=== PATIENT | male | born 1955 ===

== ENCOUNTER → 2017-09-20 09:57 | Outpatient (CLI) | payer OTHER, SELFPAY ==
[2017-09-20 10:36] LABS: Add Manual Diff / Slide Review NO; Basophils Percent Auto 1.2 % (0-2); Eosinophils Percent Auto 1.2 % (2-4); Hematocrit 43.7 % (41-53); Hemoglobin 14.6 g/dL (13.5-17.5); Lymphocytes Percent Auto 14.4 % (25-40); Mean Corpuscular HGB Conc 33.5 % (30-36); Mean Corpuscular Hemoglobin 32.3 PG (26-34); Mean Corpuscular Volume 96.3 fL (80-100); Monocytes Percent Auto 17.5 % (3-14); Neutrophils Absolute Auto 4100 /uL (3000-5900); Neutrophils Percent Auto 65.7 % (50-75); Platelet Count 187 X10^3/uL (150-400); Red Blood Cell Count 4.54 X10^6/uL (4.5-5.9); Red Cell Distribution Width 14.7 % (11.6-14.8); White Blood Cell Count 6.3 X10^3/uL (4.5-11.0)
[2017-09-20 10:53] LABS: Alanine Aminotransferase 40 IU/L (21-72); Albumin 4.4 g/dL (3.5-5.0); Albumin Globulin Ratio 1.6 (1.0-2.8); Alkaline Phosphatase 122 U/L (38-126); Appearance Urine UA CLEAR; Aspartate Aminotransferase 43 IU/L (17-59); Bilirubin Total 0.7 mg/dL (0.2-1.3); Bilirubin Urine UA NEGATIVE (NEGATIVE); Blood Urea Nitrogen 22 mg/dL (9-20); Calcium 9.3 mg/dL (8.4-10.2); Carbon Dioxide 27 mmol/L (22-32); Chloride 102 mmol/L (98-107); Cholesterol 285 mg/dL (140-199); Color Urine UA YELLOW; Estimated Glomerular Filt Rate > 60.0 mL/min (>60); Globulin 2.8 g/dL (1.7-4.1); Glucose 97 mg/dL (80-110); Glucose Urine UA NEGATIVE (Normal); HDL Cholesterol 66 mg/dL (40-60); HEMOLYSIS < 15 (0-50); Ketones Urine UA NEGATIVE (NEGATIVE); Leukocyte Esterase Urine UA NEGATIVE (NEGATIVE); Nitrite Urine UA Negative (Negative); Occult Blood Urine UA NEGATIVE (Negative); Potassium 5.1 mmol/L (3.4-5.1); Protein Urine UA TRACE (Negative); Sodium 142 mmol/L (137-145); Specific Gravity Urine UA 1.015 (1.000-1.035); Total Protein 7.2 g/dL (6.3-8.2); Triglycerides 443 mg/dL (35-150); Urobilinogen Urine UA 0.2 E.U./dL (0.2)
[2017-09-20 10:55] LABS: C-Reactive Protein Quant < 0.5 mg/dL (<1.0)
[2017-09-20 11:12] LABS: Bacteria Urine Moderate (10-30); Culture Indicated Urine Cult Not Indicated; Hyaline Casts Urine 1-5/LPF; Mucus Urine 1+ (Negative); RBC Urine 0-1/HPF (0-5/HPF); WBC Urine 0-1/HPF (0-5/HPF)
[2017-09-20 11:26] LABS: Erythrocyte Sedimentation Rate 13 MM/HR (0-15)
[2017-09-20 11:29] LABS: Thyroid Stimulating Hormone 1.48 uIU/mL (0.47-4.68)
== END ==
PROVIDERS: PCP Family Medicine; Visit Provider Internal Medicine Rheumatology
DX: M31.30 Wegener's granulomatosis without renal involvement (principal); D53.9 Nutritional anemia, unspecified; N19 Unspecified kidney failure; F32.9 Major depressive disorder, single episode, unspecified; E78.5 Hyperlipidemia, unspecified; I10 Essential (primary) hypertension
CPT/HCPCS: 36415; 80053; 80061; 81001; 84443; 85025; 85651; 86140

== ENCOUNTER → 2017-09-24 16:08 | Outpatient (CLI) | payer OTHER, SELFPAY | PROVIDERS: Family Provider Family Medicine; PCP Family Medicine; Visit Provider Family Medicine | DX: N39.0 Urinary tract infection, site not specified (principal); Z53.9 Procedure and treatment not carried out, unspecified reason ==

== ENCOUNTER 2018-03-03 07:25 | Inpatient (IN) | payer OTHER, SELFPAY ==
[2018-03-03] VITALS (18 sets, daily range): BP systolic 104–146; BP diastolic 57–77; PULSE 83–104; RESP 11–38; TEMP 36.5–37.6; O2SAT 77–94; BMI 28.5; BMI 27.8
--- NOTE | 2018-03-03 | DI.RAD.S_ITS ---
PROCEDURE: XR FOOT RT 2V INDICATIONS: pain; r/o fracture /angelique TECHNIQUE: 3 views of the foot were acquired. COMPARISON: None. FINDINGS: Bones: No fractures or dislocations. No suspicious bony lesions. Soft tissues: No tibiotalar joint effusion. Achilles tendon appears normal. IMPRESSION: No trauma found. Dictated by: Ray Limon M.D. on 03/03/2018 at 12:52 Approved by: Ray Limon M.D. on 03/03/2018 at 12:53
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
[2018-03-03] MEDS: NITROGLYCERIN 0.4 MG SL TAB SL ×2 (07:52→08:26)
[2018-03-03] MEDS: ALBUTEROL/IPRATROPIUM 3 ML AMPUL INH (08:10)
[2018-03-03 08:30] LABS: Add Manual Diff / Slide Review NO; Basophils Percent Auto 0.4 % (0-2); Eosinophils Percent Auto 0.1 % (2-4); Hematocrit 33.7 % (41-53); Hemoglobin 11.4 g/dL (13.5-17.5); Lymphocytes Percent Auto 5.6 % (25-40); Mean Corpuscular HGB Conc 33.8 % (30-36); Mean Corpuscular Hemoglobin 31.2 PG (26-34); Mean Corpuscular Volume 92.2 fL (80-100); Monocytes Percent Auto 12.2 % (3-14); Neutrophils Absolute Auto 10600 /uL (3000-5900); Neutrophils Percent Auto 81.7 % (50-75); Platelet Count 494 X10^3/uL (150-400); Red Blood Cell Count 3.66 X10^6/uL (4.5-5.9); Red Cell Distribution Width 13.1 % (11.6-14.8)
[2018-03-03 08:42] LABS: Alanine Aminotransferase 24 IU/L (21-72); Albumin 3.7 g/dL (3.5-5.0); Albumin Globulin Ratio 1.2 (1.0-2.8); Alkaline Phosphatase 145 U/L (38-126); Aspartate Aminotransferase 20 IU/L (17-59); BUN Creatinine Ratio 17.5 (6-22); Bilirubin Total 0.5 mg/dL (0.2-1.3); Blood Urea Nitrogen 21 mg/dL (9-20); Calcium 8.9 mg/dL (8.4-10.2); Carbon Dioxide 24 mmol/L (22-32); Chloride 101 mmol/L (98-107); Creatine Kinase < 20 U/L (55-170); Estimated Glomerular Filt Rate > 60.0 mL/min (>60); Glucose 97 mg/dL (80-110); HEMOLYSIS < 15 (0-50); Lipase 127 U/L (23-300); Potassium 4.4 mmol/L (3.4-5.1); Sodium 139 mmol/L (137-145); Total Protein 6.7 g/dL (6.3-8.2)
[2018-03-03 08:54] LABS: Troponin I < 0.012 ng/mL (0.01-0.034)
--- NOTE | 2018-03-03 09:43 | DI.CT.S_ITS ---
PROCEDURE: CT ANGIO CHEST PE PROTOCOL INDICATIONS: hypoxic recent airplane ride TECHNIQUE: After the administration of intravenous contrast, 2 mm thick sections acquired from the pulmonary apices to the posterior costophrenic angles. 3-dimensional maximum intensity projection (MIP) coronal and sagittal reformats were then acquired through the thorax. For radiation dose reduction, the following was used: automated exposure control, adjustment of mA and/or kV according to patient size. COMPARISON: [facility], CR, XR CHEST 1V, 03/03/2018, 8:08. FINDINGS: Image quality: Excellent. Pulmonary arteries: Pulmonary arteries are normal in size, and demonstrate no intraluminal filling defects to suggest central pulmonary embolism. Lungs and pleura: There is a 64 mm diameter region of masslike consolidation within the left upper lobe posterolaterally adjacent to the major fissure. There is moderate airspace opacity within the left lower lobe. There is a small partially loculated left pleural effusion. Mild patchy airspace opacity within the right lung base is present. Central and peripheral airways are patent. Mediastinum: Heart size is enlarged, without pericardial effusion. There is calcification of the coronary vasculature. No mediastinal or hilar adenopathy. Thoracic aorta is normal in caliber and enhancement. Esophagus is normal in caliber, without hiatal hernia. Bones and chest wall: No suspicious bony lesions. Ribs and thoracic spine appear intact throughout. Thyroid gland is within normal limits. No axillary or supraclavicular adenopathy. Abdomen: Visualized upper abdominal solid organs appear normal in the early arterial phase of enhancement. IMPRESSION: 1. Left upper lobe round pneumonia versus neoplasm. 2. Small partially loculated left pleural effusion. 3. Bibasilar pneumonia. 4. Coronary artery disease. Dictated by: Mac Moses M.D. on 03/03/2018 at 9:44 Approved by: Mac Moses M.D. on 03/03/2018 at 9:48
[2018-03-03 09:56] LABS: Bacteria Urine None Seen; RBC Urine None Seen (0-5/HPF)
[2018-03-03 10:10] LABS: Squamous Epithelial Cell Urine 5-10 /HPF; WBC Urine 1-5/HPF (0-5/HPF)
[2018-03-03 10:11] LABS: Culture Indicated Urine Cult Not Indicated; Hyaline Casts Urine 5-10/LPF; Mucus Urine 2+ (Negative)
[2018-03-03] MEDS: CEFTRIAXONE 1 GM/50 ML FROZ.PIGGY IV (10:39)
[2018-03-03 11:56] LABS: Magnesium 2.1 mg/dL (1.6-2.3); Phosphorous 3.4 mg/dL (2.3-3.7)
[2018-03-03 12:02] LABS: Influenza A and B by PCR Rapid Negative (Negative)
[2018-03-03] MEDS: SODIUM CHLORIDE 0.9% 1,000 ML 75 ML IV (12:16)
[2018-03-03] MEDS: predniSONE 5 MG TABLET PO (12:17)
[2018-03-03] MEDS: AZITHROMYCIN 500 MG in DEXTROSE 5% IN WATER 250 ML IV (12:18)
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
[2018-03-03] MEDS: HYDROCODONE/ACET 5/325 TABLET 1 TAB PO ×2 (15:30→20:30)
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
[2018-03-04] VITALS (14 sets, daily range): BP systolic 110–147; BP diastolic 62–99; PULSE 80–102; RESP 19–24; TEMP 36.3–37.1; O2SAT 2–98
--- NOTE | 2018-03-04 | DI.RAD.S_ITS ---
PROCEDURE: XR CHEST 2V INDICATIONS: pna vs mass TECHNIQUE: 2 views of the chest were acquired. COMPARISON: [facility], CT, CT ANGIO CHEST PE PROTOCOL, 03/03/2018, 9:27. [facility], CR, XR CHEST 1V, 03/03/2018, 8:08. FINDINGS: Surgical changes and devices: None. Lungs and pleura: No pleural effusions or pneumothorax. Redemonstration of masslike opacity involving the left midlung. Please see further characterization with CT chest dated yesterday. Bibasilar patchy opacities are again present and unchanged No definite new consolidation since yesterday radiographically identified. Mediastinum: Mediastinal contours are normal. Heart size is normal. Bones and chest wall: No suspicious bony abnormalities. Soft tissues appear unremarkable. IMPRESSION: Overall, no new consolidation since yesterday. Redemonstrated bibasilar patchy and left midlung masslike opacities as before. Dictated by: Nithin Tadeo M.D. on 03/04/2018 at 10:04 Approved by: Nithin Tadeo M.D. on 03/04/2018 at 10:08
[2018-03-04] MEDS: HYDROCODONE/ACET 5/325 TABLET 1 TAB PO ×3 (00:23→19:57)
[2018-03-04] MEDS: SODIUM CHLORIDE 0.9% 1,000 ML 75 ML IV (01:39)
[2018-03-04 05:07] LABS: Add Manual Diff / Slide Review NO; Basophils Percent Auto 0.3 % (0-2); Eosinophils Percent Auto 0.4 % (2-4); Hematocrit 36.1 % (41-53); Hemoglobin 11.5 g/dL (13.5-17.5); Lymphocytes Percent Auto 4.1 % (25-40); Mean Corpuscular HGB Conc 31.8 % (30-36); Mean Corpuscular Hemoglobin 29.7 PG (26-34); Mean Corpuscular Volume 93.4 fL (80-100); Monocytes Percent Auto 11.7 % (3-14); Neutrophils Absolute Auto 10100 /uL (3000-5900); Neutrophils Percent Auto 83.5 % (50-75); Platelet Count 481 X10^3/uL (150-400); Red Blood Cell Count 3.86 X10^6/uL (4.5-5.9); Red Cell Distribution Width 13.7 % (11.6-14.8); White Blood Cell Count 12.1 X10^3/uL (4.5-11.0)
[2018-03-04 05:20] LABS: Magnesium 2.3 mg/dL (1.6-2.3)
[2018-03-04 05:21] LABS: Alanine Aminotransferase 25 IU/L (21-72); Albumin 3.4 g/dL (3.5-5.0); Albumin Globulin Ratio 1.1 (1.0-2.8); Alkaline Phosphatase 124 U/L (38-126); Aspartate Aminotransferase 22 IU/L (17-59); BUN Creatinine Ratio 18.9 (6-22); Bilirubin Total 0.4 mg/dL (0.2-1.3); Blood Urea Nitrogen 17 mg/dL (9-20); Calcium 8.6 mg/dL (8.4-10.2); Carbon Dioxide 28 mmol/L (22-32); Chloride 104 mmol/L (98-107); Estimated Glomerular Filt Rate > 60.0 mL/min (>60); Glucose 107 mg/dL (80-110); HEMOLYSIS < 15 (0-50); Potassium 4.8 mmol/L (3.4-5.1); Sodium 141 mmol/L (137-145); Total Protein 6.4 g/dL (6.3-8.2)
[2018-03-04] MEDS: CEFTRIAXONE 1 GM/50 ML FROZ.PIGGY IV (05:25)
[2018-03-04] MEDS: AZITHROMYCIN 250 MG in DEXTROSE 5% IN WATER 250 ML IV (06:19)
[2018-03-04] MEDS: AMLODIPINE 5 MG TABLET PO (08:11)
[2018-03-04] MEDS: ATENOLOL 25 MG TABLET 50 MG PO (08:11)
[2018-03-04] MEDS: CITALOPRAM 20 MG TABLET 40 MG PO (08:11)
[2018-03-04] MEDS: predniSONE 5 MG TABLET PO (08:13)
--- NOTE | 2018-03-04 15:31 | P.PN_ITS ---
Subjective Date Patient Seen: 03/04/18 Time Patient Seen: 15:30 Interval history: NO CP OR SOB REPORTED FEELING BETTER NO NOVAK/NAUSEA OR VOMITING NO SIGNIFICANT ISSUES OVERNIGHT Exam Vital Signs (past 8 hours): - 03/04/18 07:58 03/04/18 08:00 03/04/18 08:53 Temperature 97.9 F Pulse Rate 87 Respiratory Rate 19 Blood Pressure 147/67 H Pulse Oximetry 96 96 92 03/04/18 11:00 03/04/18 11:38 Temperature 98.3 F Pulse Rate 82 Respiratory Rate 24 Blood Pressure 134/73 Pulse Oximetry 91 95 Oxygen Delivery Method Nasal Cannula Oxygen Flow Rate 2 Narrative Exam Narrative: NO ACUTE DISTRESS. PATIENT IS ALERT ORIENTED X3. VITAL SIGNS STABLE HEAD ATRAUMATIC NORMOCEPHALIC NECK : SUPPLE WITHOUT ADENOPATHY EYE: EOMI, PERRLA, NORMAL CONJUNCTIVA CHEST: REGULAR RATE.. NO RUBS. PMI IS NON DISPLACED. NORMAL S1/S2 PULMONARY DECREASED BS OVER THE BASES. MILD BIBASILAR CRACKLES NOTED; NO INCREASED DULLNESS TO PERCUSSION; NO WHEEZING EXTREMITIES: 1+ EDEMA. NON PITTING. NO CYANOSIS CLUBBING NOTED. NEURO: CRANIAL NERVES 2-12 GROSSLY INTACT. NO FOCAL NEUROLOGICAL DEFICIT NOTED. MSK: NORMAL RANGE OF MOTION FOR AGE. NO JOINT EFFUSION. SKIN: NORMAL FOR ETHNICITY; NO ECCHYMOSIS. NO LESION. FAIR TURGOR. : NORMAL EXTERNAL GENITALIA. PSYCH : APPROPRIATE MOOD AND AFFECT. ALERT AWAKE ORIENTED X3 Objective Labs Result Diagrams: 03/04/18 04:45 03/04/18 04:45 Labs: Laboratory Results - last 24 hr 03/04/18 03/04/18 03/04/18 04:45 04:45 04:45 WBC 12.1 H RBC 3.86 L Hgb 11.5 L Hct 36.1 L MCV 93.4 MCH 29.7 MCHC 31.8 RDW 13.7 Plt Count 481 H Neut % (Auto) 83.5 H Lymph % (Auto) 4.1 L Mitchell % (Auto) 11.7 Eos % (Auto) 0.4 L Baso % (Auto) 0.3 Neut # (Auto) 17444 H Sodium 141 Potassium 4.8 Chloride 104 Carbon Dioxide 28 BUN 17 Creatinine 0.90 Estimated GFR > 60.0 BUN/Creatinine Ratio 18.9 Glucose 107 Calcium 8.6 Magnesium 2.3 Total Bilirubin 0.4 AST 22 ALT 25 Alkaline Phosphatase 124 Total Protein 6.4 Albumin 3.4 L Globulin 3.0 Albumin/Globulin Ratio 1.1 Assessment & Plan Plan: Assessment/Plan Narrative: IMPRESSION AND PLAN ACUTE RESP FAILURE; DUE TO PNA; ABG INDICATED; REPEATED CXR THIS AM; ADDITIONAL MANAGEMENT INDICATED CLINICALLY; APPEARS IMPROVED LEFT UPPER LOBE PNEUMONIA. WILL CONTINUE CURRENT ANTIBIOTICS WITH AZITHROMYCIN AND ROCEPHIN. SPUTUM CULTURE PENDING; SERIAL CHEST FILM INDICATED; GET ABG IF NEEDED; POSSIBLE LEFT UPPER LOBE MASS. THIS WAS REPORTED PER CT. REPEATED CHEST FILM THIS AM AND POSS MASS LIKE OPACITY IS BEING MENTIONED; WILL CONSIDER FURTHER IMAGING INDICATED. PATIENT IS A NONSMOKER. WILL CONSIDER INFORMATION SYSTEMS DIRECTOR CONSULT/REFERRAL OUTPATIENT IF NEEDED; ADDITIONAL WORKUP INDICATED LEFT PLEURAL EFFUSION. THIS IS MOST LIKELY PARAPNEUMONIC IN NATURE. MONITOR FOR NOW. POSSIBLE CAD. THIS WAS NOTED ON THE CT SCAN. PATIENT HAS NO PRIOR HISTORY. CONSIDER ECHOCARDIOGRAM INDICATED LEFT ANKLE STRAIN. X-RAY NEGATIVE. PAIN MANAGEMENT. PT OT INDICATED HYPERTENSION PER HISTORY. CONTINUE HOME MEDICATIONS FOR NOW. NEEDED MEDICATIONS INDICATED WEGENERS SYNDROME. CONTINUE HOME MEDICATIONS. OUTPATIENT MANAGEMENT INDICATED ANEMIA OF CHRONIC DISEASE. MONITOR FOR NOW WITH SERIAL LABS LEUKOCYTOSIS. MOST LIKELY SECONDARY TO PNEUMONIA. PATIENT ON ANTIBIOTICS. DAILY CBC TO FOLLOW THROMBOCYTOSIS. LIKELY SECONDARY TO INFECTIOUS PROCESS. IMPROVING; MONITOR DAILY ELEVATED BUN. THIS HAS BEEN ONGOING SINCE 2017. CAUSE?. CREATININE IS ADEQUATE. GFR IS ABOVE 60. MONITOR FOR NOW OK FOR MEDSURG DC PER CLINICAL COURSE
--- NOTE | 2018-03-04 15:58 | PC.NURSE ---
Addendum entered by Hali Mercado R.N. 03/04/18 18:15: 1800 - Ambulate around the unit. 91% on RA. Educated to resp awake vs asleep. Encourage pt to continue O2 use at this time. Monitor. Original Note: Pt requesting to ambulate. Changed to portable tele monitor. Ambulate halls with LINE REPAIRER. Denies increased SOB. Productive cough with left side bottom 3 ribs, catch. Encouraged I.S. use. Call light in reach.
--- NOTE | 2018-03-04 16:45 | CM.DANOTE ---
Discharge Planning/Care Management DCP: assessment: case received, EMR reviewed. Discussed in Team Rounds with Dr. Pérez. Pt is a 63 year old male who admitted to care of hosptitalist team yessterday. Payer: [facility]. PCP: not known at this time Admission status: INPT: confirmed by UR RN Billy. Hospitalist noted that a mass had been noted and workup was in process. He anticipated pt would be here a few days. It is noted that pt does live in [place] with his Jessica. Due to caseload triage: decision made to defer the rest of the assessment process to DCP team tomorrow. P: in process CM Discharge Assessment Start: 03/04/18 16:44 Freq: Status: Active Protocol: Document 03/04/18 16:44 ITV (Rec: 03/04/18 16:45 ITV [id number]) Discharge Planning Assessment History Provided By Medical Record Comment pending an in room visit with pt Review Status In Process Next Review Type Continued Stay Review
[2018-03-04 18:38] LABS: Add Manual Diff / Slide Review NO; Eosinophils Percent Auto 0.1 % (2-4); Hematocrit 36.8 % (41-53); Hemoglobin 11.9 g/dL (13.5-17.5); Lymphocytes Percent Auto 3.9 % (25-40); Mean Corpuscular HGB Conc 32.2 % (30-36); Mean Corpuscular Hemoglobin 30.4 PG (26-34); Mean Corpuscular Volume 94.3 fL (80-100); Monocytes Percent Auto 9.9 % (3-14); Neutrophils Absolute Auto 12700 /uL (3000-5900); Neutrophils Percent Auto 85.1 % (50-75); Platelet Count 575 X10^3/uL (150-400); Red Cell Distribution Width 13.5 % (11.6-14.8); White Blood Cell Count 14.9 X10^3/uL (4.5-11.0)
[2018-03-05] VITALS (11 sets, daily range): BP systolic 126–149; BP diastolic 71–78; PULSE 70–85; RESP 16–21; TEMP 36.2–37.2; O2SAT 89–98
[2018-03-05] MEDS: CODEINE/GUAIFENESIN LIQUID 10ML UDC 5 ML PO (00:09)
[2018-03-05] MEDS: HYDROCODONE/ACET 5/325 TABLET 1 TAB PO ×2 (00:54→19:59)
[2018-03-05] MEDS: CODEINE/GUAIFENESIN LIQUID 5ML UDC 5 ML PO (05:44)
[2018-03-05] MEDS: ATENOLOL 25 MG TABLET 50 MG PO (08:21)
[2018-03-05] MEDS: CITALOPRAM 20 MG TABLET 40 MG PO (08:22)
[2018-03-05] MEDS: predniSONE 5 MG TABLET PO (08:22)
[2018-03-05] MEDS: AMLODIPINE 5 MG TABLET PO (08:22)
[2018-03-05] MEDS: ONDANSETRON 4 MG ODT 8 MG PO (08:22)
--- NOTE | 2018-03-05 08:38 | PC.NURSE ---
Transfer Note Transferred to room 230 via wheelchair at this time. Report given to Amanda CARTAGENA. All belongings with pt including cell phone and associate vice president, clothing, and meds.
--- NOTE | 2018-03-05 09:09 | CM.DPC ---
DCP Cont: Checked in patient. Alert and oriented, lives with his . Patient moved to this room, was down in iCU. Patient is hopeful to go home, but is needing to be on oxygen at this time. Patient should be working with respiratory as well. Patient has been independent at home. He is hopeful that they can start another IV, for he stated he really doesn't want a PICC line. P: DCP to continue to follow closely, and offer any resources that patient may need before discharge. Robina Acosta RN/Technology Lead
[2018-03-05] MEDS: CEFTRIAXONE 1 GM/50 ML FROZ.PIGGY IV (10:52)
[2018-03-05] MEDS: AZITHROMYCIN 250 MG in DEXTROSE 5% IN WATER 250 ML IV (11:32)
--- NOTE | 2018-03-05 14:48 | PC.NURSE ---
midline 20g 8cm iv cath placed in upper lt arm with no problems at 10am.
--- NOTE | 2018-03-05 16:17 | PM.PN.1 ---
Subjective Date Patient Seen: 03/05/18 Interval history: Patient reports he feels better. He does note that he becomes hypoxic over the course of the day. He does not feel that he is back to baseline. Patient does follow with a front desk agent in telling him. Exam Vital Signs (past 8 hours): - 03/05/18 08:25 03/05/18 11:39 Temperature 97.1 F L Pulse Rate 85 Respiratory Rate 18 Blood Pressure 144/75 H Pulse Oximetry 95 95 Oxygen Delivery Method Room Air Oxygen Flow Rate 2.5 Narrative Exam Narrative: Pleasant male in no acute distress Lungs: Left basilar crackles, Cardiac exam: Regular rate and rhythm normal S1 and S2 Abdomen: Soft nontender nondistended Extremity: No edema Objective Labs Result Diagrams: 03/04/18 17:56 03/04/18 04:45 Labs: Laboratory Results - last 24 hr 03/04/18 17:56 WBC 14.9 H RBC 3.90 L Hgb 11.9 L Hct 36.8 L MCV 94.3 MCH 30.4 MCHC 32.2 RDW 13.5 Plt Count 575 H Neut % (Auto) 85.1 H Lymph % (Auto) 3.[address] [place] % (Auto) 9.9 Eos % (Auto) 0.1 L Baso % (Auto) 1.0 Neut # (Auto) 47147 H Assessment & Plan (1) Pneumonia: Problem details: Continue antibiotic Qualifiers: Aspiration pneumonia type: Laterality: left Lung location: upper lobe of lung Pneumonia type: due to unspecified organism Qualified Code(s): J18.1 - Lobar pneumonia, unspecified organism Current visit: Yes Status: Acute (2) Respiratory failure: Problem details: Will continue oxygen and wean as appropriate Qualifiers: Chronicity: acute Respiratory failure complication: hypoxia Qualified Code(s): J96.01 - Acute respiratory failure with hypoxia Current visit: Yes Status: Acute (3) Granulomatosis with polyangiitis: Problem details: Patient is current on his usual prednisone dose. There is no evidence of hemoptysis or pulmonary hemorrhage. Will continue the current dose. Will consult with his front desk agent tomorrow. Current visit: No Status: None (4) Hypertension: Problem details: Continue usual medication Current visit: No Status: None
--- NOTE | 2018-03-05 18:27 | PC.NURSE ---
Addendum entered by Sofy Pepper 03/05/18 20:39: 203- Patient asleep with NC on 3 liters. Original Note: Addendum entered by Sofy Pepper 03/05/18 20:15: 2005- Patient is complaining of 5/10 pain in rib cage. 1 Casanova given, will reassess. Original Note: 1700- On 3-L O2, patient's O2 saturation is 96. Standing in room, on room air O2 was 92. After taking a few deep breaths O2 went up to 96. Patient got up and took a shower. Patient was coughing productively in the shower. Patient stated that the warm, moist air helped relieve some of the congestion in his chest. Sitting on edge of bed eating dinner, patient's O2 is 92 on room air. When using IS patient complains of pain during inspiration. Patient states that his SOB on exertion has improved.
[2018-03-06] VITALS (7 sets, daily range): BP systolic 128–139; BP diastolic 73–79; PULSE 71–83; RESP 16–18; TEMP 36.6–37.3; O2SAT 92–97
--- NOTE | 2018-03-06 00:30 | PC.NURSE ---
Addendum entered by Angelica Mora R.N. 03/06/18 03:28: Complains of 6/10 lower rib pain and cough; medicated with Vicodin and Guaifenesin w/codeine elixer. Original Note: Patient is alert and oriented. Breath sounds with inspiratory crackles in left LL. States he has minor SOB with exertion. Also states he still has intermittently productive cough with cream sputum. Oxygen at 3L/min per NC with sat of 97% so decreased O2 to 2L/min. HRR. Denies nausea. BT present and abdomen is soft. Denies dysuria, frequency, urgency or incontinence. Independent with mobility. Having some rib pain with 4/10 severity but declines offer of pain medication. Wearing bilateral DAVIS stockings but refusing SCD's. Fall risk score is moderate but patient is steady on feet so bed alarm not currently in use.
[2018-03-06] MEDS: HYDROCODONE/ACET 5/325 TABLET 1 TAB PO (03:25)
[2018-03-06] MEDS: CODEINE/GUAIFENESIN LIQUID 5ML UDC 5 ML PO (03:26)
[2018-03-06] MEDS: SODIUM CHLORIDE 0.9% FLUSH 10 ML IV (05:28)
[2018-03-06] MEDS: SODIUM CHLORIDE 0.9% 250 ML 21 ML IV (05:28)
[2018-03-06] MEDS: CEFTRIAXONE 1 GM/50 ML FROZ.PIGGY IV (05:35)
[2018-03-06] MEDS: AZITHROMYCIN 250 MG in DEXTROSE 5% IN WATER 250 ML IV (06:12)
[2018-03-06] MEDS: ONDANSETRON 4 MG ODT 8 MG PO (08:58)
[2018-03-06] MEDS: CITALOPRAM 20 MG TABLET 40 MG PO (08:58)
[2018-03-06] MEDS: ATENOLOL 25 MG TABLET 50 MG PO (08:59)
[2018-03-06] MEDS: predniSONE 5 MG TABLET PO (08:59)
[2018-03-06] MEDS: AMLODIPINE 5 MG TABLET PO (08:59)
--- NOTE | 2018-03-06 10:23 | PM.DS.1 ---
History of Present Illness Date Patient Seen: 03/06/18 Chief complaint: chest pains,sob Narrative: chest pains,sob Narrative: - THIS IS A VERY PLEASANT 63-YEAR-OLD MALE WITH A PAST MEDICAL HISTORY REPORTEDLY SIGNIFICANT FOR HYPERTENSION, SHARONA S SYNDROME. - HE DENIES A PRIOR HISTORY OF TOBACCO ABUSE. HE DENIES ANY PRIOR HISTORY OF CVA OR UT. - HE IS ON RITUXAN AND STEROIDS - HE REPORTED THAT FOR THE LAST WEEK OR SO IS BEING HAVING SOME COUGH WITH YELLOWISH SPUTUM PRODUCTION. HE DENIED ANY BLOOD IN HIS SPUTUM. HE DENIED ANY FEVER OR CHILLS. HOWEVER REPORTED THAT HIS SYMPTOMS HAS BEEN WORSENING. NO WHEEZING. HE RECENTLY TRAVELED TO [place]. NO TRAVEL OUTSIDE THE COUNTRY. HE DENIED ANY SICK CONTACT. - HE ALSO REPORTED SOME LEFT-SIDED CHEST PAIN. NO RADIATION. NOTHING MADE IT BETTER OR WORSE. NO CHEST PALPITATION. NO EDEMA TO LOWER EXTREMITIES. THE CHEST PAIN WAS DESCRIBED I SUSPECT THE PRESSURE-LIKE. - HE DENIED ANY RECENT WEIGHT LOSS OR WEIGHT GAIN. NO DIFFICULTY SWALLOWING. NO DYSPNEA ON EXERTION. HE ALSO DENIES ANY SWELLING TO EXTREMITIES. NO SYNCOPAL OR PRESYNCOPAL EPISODE. NO NUMBNESS TINGLING TO EXTREMITIES. THE POLYURIA NO POLYDIPSIA. NO ABDOMINAL PAIN. NO NAUSEA OR VOMITING. NO DIARRHEA OR CONSTIPATION. - NO OTHER COMPLAINT REPORTED Discharge Providers Date of admission: 03/03/18 10:46 Consults: 03/03/18 10:53 Consult to Discharge Planning Routine Comment: Discharge provider: Saundra Hatfield MD Discharge Date: 03/06/18 Summary Discharge Diagnosis: Bilateral Pneumonia Left upper lobe mass, suspect rounded pneumonia vs. neoplasm, needs follow up Chest CT in 6 weeks Faina's Granulomatosis Hypertension Hospital Course: Patient was admitted to the hospital with shortness of breath and chest pain. His chest Xray and CTA confirmed bilateral pneumonia. The Chest CT revealed a left upper lobe mass concerning for neoplasm vs. rounded pneumonia. The patient was treated for community acquired pneumonia with Ceftriaxone/Azithromycin. He was initially hypoxic on room air. Over the next several days his breathing improved, oxygenation improved, he nad no further shortness of breath or chest pain. The patient was deemed appropriate for discharge home. Status at Discharge Functional status at discharge: independent ambulation Overall status at discharge: patient is back to baseline Time Spent with Patient Less than 30 minutes Exam Vital Signs (past 8 hours): - 03/06/18 03:22 03/06/18 05:30 03/06/18 08:00 Temperature 98.7 F 99.1 F Pulse Rate 83 71 Respiratory Rate 16 18 Blood Pressure 128/78 139/79 Pulse Oximetry 96 94 92 Oxygen Delivery Method Nasal Cannula Oxygen Flow Rate 2 Narrative Exam Narrative: Pleasant male in no acute distress. Lungs left basilar crackles, decreased breath sounds Cardiac exam: Regular rate and rhythm normal S1 and S2, no murmurs rubs or gallops Abdomen: Soft and nontender extremity: No edema Objective Labs Result Diagrams: 03/04/18 17:56 03/04/18 04:45 Discharge Plan Discharge Plan Patient Disposition: Home Discharge Med Rec/Prescriptions Prescriptions: New benzonatate 100 mg Capsule 100 mg PO TID PRN (Reason: Cough) Qty: 10 RF: 0 codeine-guaifenesin 10-100 mg/5 mL Liquid 5 ml PO Q6H PRN (Reason: Cough) 5 Days RF: 0 levofloxacin 750 mg tablet 750 mg PO DAILY Qty: 5 RF: 0 Continue ondansetron 8 mg tablet,disintegrating 8 mg Translingual DAILY RF: 0 citalopram [Celexa] 40 MG tablet 40 mg PO DAILY RF: 0 prednisone 5 MG tablet 5 mg PO DAILY RF: 0 atenolol 25 MG tablet 50 mg PO DAILY RF: 0 amlodipine [Norvasc] 5 MG tablet 5 mg PO DAILY RF: 0 trazodone 100 MG tablet 100 mg PO BEDTIME PRN (Reason: Sleep) RF: 0 Provider Discharge Instructions Diet: Low-sodium Activity: As tolerated Other treatments: Follow-up with PCP for further evaluation of left upper lobe findings on chest CT Patient to follow up with his PCP next week Skin/Wound/Dressing Care Report to your healthcare provider any signs of infection, such as:: chills, fever Visit Report/Discharge Packet Visit Report Forms: Stroke Signs & Symptoms Discharge Data Attending Provider: Stanford Pérez Admit Date/Time: 03/03/18 10:46
--- NOTE | 2018-03-06 14:02 | PC.NURSE ---
Discharge: Passed Trial of ra, did get 1 ra sat at 89% after amb which immed went up to 95% w/rest and deep breathing. Discussed taking breaks and resting frequesntly. Denies feeling sob. MD Hatfield was made aware of finding. Pt reported he was able to rest freq at home and his will help him. Reviewed d/c instruction packet. Pt wanted to wait for his downstairs and he reported she would be here at 1245. This was cleared with A Ana Maria RN. Pt transported down stairs to wait for his via w/c.
== END 2018-03-06 11:55 | disposition home or self-care (01) | DRG 189 ==
LOC: ED 10:39 → AC 10:48 → ICU 11:09 → AC 03-05 08:51
PROVIDERS: Admitting Provider Hospitalist; Emergency Provider Emergency Medicine; Visit Provider Hospitalist
DX: J96.00 Acute respiratory failure, unspecified whether with hypoxia or hypercapnia (principal); J18.1 Lobar pneumonia, unspecified organism; J90 Pleural effusion, not elsewhere classified; M31.30 Wegener's granulomatosis without renal involvement; R91.8 Other nonspecific abnormal finding of lung field; I10 Essential (primary) hypertension; F32.9 Major depressive disorder, single episode, unspecified; Z79.52 Long term (current) use of systemic steroids
CPT/HCPCS: 36415; 36591; 71045; 71046; 71275; 73620; 80053; 81003; 81015; 82550; 83690; 83735; 83880; 84100; 84484; 85025; 87070; 87205; 87400; 87797; 93005; 94640; 94760; 94762; 96365; 99285; A9270; J1642; Q9967

== ENCOUNTER → 2018-04-03 14:42 | Outpatient (CLI) | payer OTHER, SELFPAY ==
[2018-03-03 11:27] VITALS: BMI 27.8
[2018-04-03 15:13] LABS: BUN Creatinine Ratio 21.8 (6-22); Blood Urea Nitrogen 24 mg/dL (9-20); Estimated Glomerular Filt Rate > 60.0 mL/min (>60)
== END ==
PROVIDERS: Visit Provider Student in an Organized Health Care Education/Training Program
DX: R91.1 Solitary pulmonary nodule (principal)
CPT/HCPCS: 36415; 82565; 84520

== ENCOUNTER → 2018-04-07 11:27 | Outpatient (CLI) | payer OTHER, SELFPAY ==
[2018-03-03 11:27] VITALS: BMI 27.8
--- NOTE | 2018-04-07 | DI.CT.S_ITS ---
PROCEDURE: CT CHEST W CON INDICATIONS: PULMONARY NODULE TECHNIQUE: After the administration of intravenous contrast, 5 mm thick sections acquired from the pulmonary apices to the posterior costophrenic angles. 7 mm thick coronal and sagittal MIP reformats were acquired. For radiation dose reduction, the following was used: automated exposure control, adjustment of mA and/or kV according to patient size. COMPARISON: [facility], CT, CT ANGIO CHEST PE PROTOCOL, 03/03/2018, 9:27. FINDINGS: Image quality: Excellent. Lungs and pleura: Previously seen masslike consolidation involving the left upper lobe has decreased since 03/03/18, now measuring 2.4 x 2.3 cm complex 5.1 x 4.4 cm. There is diffuse rather groundglass attenuation and underlying pleural thickening. No new consolidation is seen. Scattered atelectasis and scarring present. Central airways appear grossly patent. Faint ill-defined groundglass nodular focus, approximately 5 mm seen in the right upper lobe image 26 series 11 which is indeterminate Mediastinum: Heart size is mildly enlarged, with coronary artery calcifications.. No pericardial effusion. No mediastinal or hilar adenopathy by size criteria. Thoracic aorta and central pulmonary arteries are normal in size. Esophagus is normal in caliber. No hiatal hernia. Bones and chest wall: Incidentally noted bilateral gynecomastia. No suspicious bony lesions. No vertebral body compression fractures. No axillary or supraclavicular adenopathy by size criteria. Thyroid gland negative. Nonspecific hypodensity measuring 4 mm in the posterior segment of the liver on image 64. Mild steatosis. IMPRESSION: Interval decrease in size of masslike consolidation involving the left upper lobe presumably reflecting improved infectious/inflammatory etiology, although recommend continued surveillance to document resolution and exclude small underlying pulmonary nodule (with noncontrast chest CT in 3 months). Faint groundglass nodular opacity seen in the right upper lobe, indeterminate although recommend attention on subsequent surveillance CTs. Coronary artery disease. Mild cardiomegaly. Incidentally noted gynecomastia Dictated by: Nithin Tadeo M.D. on 04/07/2018 at 12:54 Approved by: Nithin Tadeo M.D. on 04/07/2018 at 13:05
== END ==
PROVIDERS: Family Provider Internal Medicine Rheumatology; Visit Provider Student in an Organized Health Care Education/Training Program
DX: R91.1 Solitary pulmonary nodule (principal); I25.10 Atherosclerotic heart disease of native coronary artery without angina pectoris; I51.7 Cardiomegaly; N62 Hypertrophy of breast
CPT/HCPCS: 71260; Q9967

== ENCOUNTER → 2018-04-07 12:15 | Outpatient (CLI) | payer OTHER, SELFPAY ==
[2018-03-03 11:27] VITALS: BMI 27.8
[2018-04-07 12:29] LABS: Bacteria Urine None Seen; RBC Urine None Seen (0-5/HPF); WBC Urine None Seen (0-5/HPF)
[2018-04-07 12:45] LABS: Appearance Urine UA CLEAR; Bilirubin Urine UA NEGATIVE (NEGATIVE); Color Urine UA YELLOW; Glucose Urine UA NEGATIVE (Negative); Ketones Urine UA NEGATIVE (NEGATIVE); Leukocyte Esterase Urine UA NEGATIVE (NEGATIVE); Nitrite Urine UA NEGATIVE (Negative); Occult Blood Urine UA NEGATIVE (Negative); Protein Urine UA NEGATIVE (Negative); Urobilinogen Urine UA 0.2 E.U./dL (0.2)
[2018-04-07 12:50] LABS: Add Manual Diff / Slide Review NO; Basophils Percent Auto 1.4 % (0-2); Eosinophils Percent Auto 1.9 % (2-4); Hematocrit 41.6 % (41-53); Hemoglobin 13.7 g/dL (13.5-17.5); Lymphocytes Percent Auto 11.7 % (25-40); Mean Corpuscular HGB Conc 32.8 % (30-36); Mean Corpuscular Hemoglobin 30.6 PG (26-34); Mean Corpuscular Volume 93.2 fL (80-100); Monocytes Percent Auto 12.5 % (3-14); Neutrophils Absolute Auto 5600 /uL (1500-7000); Neutrophils Percent Auto 72.5 % (50-75); Platelet Count 203 X10^3/uL (150-400); Red Blood Cell Count 4.47 X10^6/uL (4.5-5.9); Red Cell Distribution Width 14.6 % (11.6-14.8); White Blood Cell Count 7.7 X10^3/uL (4.5-11.0)
[2018-04-07 12:59] LABS: Culture Indicated Urine Cult Not Indicated; Urine Comments Microscopic Normal
[2018-04-07 13:23] LABS: Erythrocyte Sedimentation Rate 20 MM/HR (0-15)
[2018-04-07 13:35] LABS: Alanine Aminotransferase 28 IU/L (21-72); Albumin 4.1 g/dL (3.5-5.0); Alkaline Phosphatase 88 U/L (38-126); Aspartate Aminotransferase 27 IU/L (17-59); BUN Creatinine Ratio 21.8 (6-22); Bilirubin Total 0.6 mg/dL (0.2-1.3); Blood Urea Nitrogen 24 mg/dL (9-20); Calcium 9.7 mg/dL (8.4-10.2); Carbon Dioxide 28 mmol/L (22-32); Chloride 101 mmol/L (98-107); Estimated Glomerular Filt Rate > 60.0 mL/min (>60); Globulin 2.1 g/dL (1.7-4.1); Glucose 88 mg/dL (80-110); HEMOLYSIS < 15 (0-50); Potassium 4.9 mmol/L (3.4-5.1); Sodium 140 mmol/L (137-145); Total Protein 6.2 g/dL (6.3-8.2)
[2018-04-07 13:36] LABS: C-Reactive Protein Quant < 0.5 mg/dL (<1.0)
== END ==
PROVIDERS: Family Provider Student in an Organized Health Care Education/Training Program; PCP Student in an Organized Health Care Education/Training Program; Visit Provider Internal Medicine Rheumatology
DX: M31.30 Wegener's granulomatosis without renal involvement (principal); Z79.890 Hormone replacement therapy
CPT/HCPCS: 36415; 80053; 81001; 85025; 85651; 86140

== ENCOUNTER → 2018-05-08 13:39 | Outpatient (CLI) | payer OTHER, SELFPAY ==
[2018-03-03 11:27] VITALS: BMI 27.8
== END ==
PROVIDERS: Family Provider Student in an Organized Health Care Education/Training Program; PCP Student in an Organized Health Care Education/Training Program; Visit Provider Internal Medicine Rheumatology
DX: Z79.52 Long term (current) use of systemic steroids (principal)
CPT/HCPCS: 77080

== ENCOUNTER → 2018-07-16 11:17 | Outpatient (CLI) | payer OTHER, SELFPAY ==
[2018-03-03 11:27] VITALS: BMI 27.8
--- NOTE | 2018-07-16 11:21 | DI.CT.S_ITS ---
PROCEDURE: CT CHEST WO CON COMPARISON: [facility], CT, CT ANGIO CHEST PE PROTOCOL, 03/03/2018, 9:27. [facility], CR, CHEST 2 VIEW, 09/21/2014, 15:22. [facility], CR, CHEST 2 VIEW, 04/26/2014, 15:16. [facility], CR, CHEST 2 VIEW, 12/10/2013, 14:18. [facility], CT, CT CHEST W CON, 04/07/2018, 11:50. INDICATIONS: SOLITARY PULMONARY NODULE FINDINGS: There is a vertically oriented band of increased radiodensity with an appearance most consistent with postinflammatory scarring of the posterior right upper lobe, corresponding to the area of prior CT concern. This appears to have contained an area of active inflammation during CT scanning 03/03/18. This exactly correlates with the area of current CT concern. IMPRESSION: In my opinion a vertically oriented area of mild increased radiodensity within the lung parenchyma the posterior right upper lobe is postinflammatory in etiology rather than evidence of malignancy. This area was involved by active inflammation 03/03/18. Followup by CT scanning in 9-12 months is recommended utilizing low dose noncontrast technique. The large lobulated area of presumed round pneumonia at the left upper chest postero-laterally has almost entirely resolved with only minimal residual lung scarring.. Dictated by: Ray Limon M.D. on 07/16/2018 at 13:06 Approved by: Ray Limon M.D. on 07/16/2018 at 13:10
== END ==
PROVIDERS: Family Provider Student in an Organized Health Care Education/Training Program; PCP Student in an Organized Health Care Education/Training Program; Visit Provider Student in an Organized Health Care Education/Training Program
DX: R91.1 Solitary pulmonary nodule (principal)
CPT/HCPCS: 71250

== ENCOUNTER → 2018-09-29 14:36 | Outpatient (CLI) | payer OTHER, SELFPAY ==
[2018-03-03 11:27] VITALS: BMI 27.8
[2018-09-29 15:45] LABS: Add Manual Diff / Slide Review NO; Basophils Absolute Auto 0 /uL (0-100); Basophils Percent Auto 0.9 % (0-2); Eosinophils Absolute Auto 0 /uL (0-450); Eosinophils Percent Auto 0.4 % (2-4); Hematocrit 39.9 % (41-53); Hemoglobin 13.1 g/dL (13.5-17.5); Lymphocytes Absolute Auto 700 /uL (1100-4500); Lymphocytes Percent Auto 12.3 % (25-40); Mean Corpuscular HGB Conc 32.8 % (30-36); Mean Corpuscular Hemoglobin 32.1 PG (26-34); Mean Corpuscular Volume 97.9 fL (80-100); Monocytes Absolute Auto 400 /uL (0-900); Monocytes Percent Auto 7.4 % (3-14); Neutrophils Absolute Auto 4600 /uL (1500-7000); Platelet Count 173 X10^3/uL (150-400); Red Blood Cell Count 4.07 X10^6/uL (4.5-5.9); Red Cell Distribution Width 13.3 % (11.6-14.8); White Blood Cell Count 5.9 X10^3/uL (4.5-11.0)
[2018-09-29 16:15] LABS: Erythrocyte Sedimentation Rate 8 MM/HR (0-15)
[2018-09-29 16:56] LABS: Alanine Aminotransferase 37 IU/L (21-72); Albumin 4.2 g/dL (3.5-5.0); Albumin Globulin Ratio 1.6 (1.0-2.8); Alkaline Phosphatase 85 U/L (38-126); Aspartate Aminotransferase 43 IU/L (17-59); BUN Creatinine Ratio 18.3 (6-22); Bilirubin Total 0.6 mg/dL (0.2-1.3); Blood Urea Nitrogen 22 mg/dL (9-20); Calcium 9.7 mg/dL (8.4-10.2); Carbon Dioxide 29 mmol/L (22-32); Chloride 104 mmol/L (98-107); Estimated Glomerular Filt Rate > 60.0 mL/min (>60); Globulin 2.6 g/dL (1.7-4.1); Glucose 103 mg/dL (80-110); HEMOLYSIS 19 (0-50); Potassium 4.4 mmol/L (3.4-5.1); Sodium 143 mmol/L (137-145); Total Protein 6.8 g/dL (6.3-8.2)
[2018-09-29 16:58] LABS: C-Reactive Protein Quant < 0.5 mg/dL (<1.0)
== END ==
PROVIDERS: Family Provider Student in an Organized Health Care Education/Training Program; PCP Student in an Organized Health Care Education/Training Program; Visit Provider Internal Medicine Rheumatology
DX: Z79.899 Other long term (current) drug therapy (principal); M31.30 Wegener's granulomatosis without renal involvement
CPT/HCPCS: 36415; 80053; 85025; 85651; 86140

== ENCOUNTER → 2018-11-17 14:10 | Outpatient (CLI) | payer OTHER, SELFPAY ==
[2018-03-03 11:27] VITALS: BMI 27.8
--- NOTE | 2018-11-17 | DI.RAD.S_ITS ---
PROCEDURE: XR THORACIC SPINE 3V INDICATIONS: Dorsalgia TECHNIQUE: 3 views of the thoracic spine were acquired. COMPARISON: None. FINDINGS: Bones: No fractures or dislocations. No suspicious bony lesions. 12 pairs of ribs are noted, and appear intact where visualized. Mild degenerative disc disease, slight convex rightward scoliosis centered at the mid thoracic spine. Soft tissues: No paravertebral stripe thickening. IMPRESSION: No trauma found. Slight convex rightward scoliosis, mild degenerative disc disease over the middle and lower thirds of the thoracic spine. Dictated by: Ray Limon M.D. on 11/17/2018 at 15:10 Approved by: Ray Limon M.D. on 11/17/2018 at 15:12
--- NOTE | 2018-11-17 | DI.RAD.S_ITS ---
PROCEDURE: XR LUMBAR SPINE 2-3V INDICATIONS: Dorsalgia TECHNIQUE: 3 views of the lumbar spine were acquired. COMPARISON: None. FINDINGS: Bones: No fracture or focal osseous destruction. Grade 1 anterolisthesis of L4 on L5. Multilevel degenerative endplate sclerosis and spurring. Diffuse facet arthropathy. Levocurvature centered at L2. Diffuse mild to moderate disc space narrowing throughout the lumbar spine. Soft tissues: Overlying bowel gas pattern is normal. No suspicious soft tissue calcifications. IMPRESSION: Levoscoliosis. Diffuse mild to moderate lumbar spondylosis and facet arthropathy. Dictated by: Nithin Tadeo M.D. on 11/18/2018 at 12:48 Approved by: Nithin Tadeo M.D. on 11/18/2018 at 12:50
== END ==
PROVIDERS: PCP Student in an Organized Health Care Education/Training Program; Visit Provider Student in an Organized Health Care Education/Training Program
DX: M54.9 Dorsalgia, unspecified (principal); M51.34 Other intervertebral disc degeneration, thoracic region; M41.84 Other forms of scoliosis, thoracic region; M47.816 Spondylosis without myelopathy or radiculopathy, lumbar region; M48.061 Spinal stenosis, lumbar region without neurogenic claudication; M43.16 Spondylolisthesis, lumbar region
CPT/HCPCS: 72072; 72100; 72110

== ENCOUNTER → 2019-03-17 14:46 | Outpatient (CLI) | payer OTHER, SELFPAY ==
[2018-03-03 11:27] VITALS: BMI 27.8
[2019-03-17 14:54] LABS: Bacteria Urine None Seen; RBC Urine None Seen (0-5/HPF); WBC Urine None Seen (0-5/HPF)
[2019-03-17 15:06] LABS: Add Manual Diff / Slide Review NO; Basophils Absolute Auto 100 /uL (0-100); Basophils Percent Auto 1.3 % (0-2); Eosinophils Absolute Auto 100 /uL (0-450); Eosinophils Percent Auto 1.5 % (2-4); Hematocrit 41.9 % (41-53); Hemoglobin 14.3 g/dL (13.5-17.5); Lymphocytes Absolute Auto 800 /uL (1100-4500); Lymphocytes Percent Auto 13.1 % (25-40); Mean Corpuscular HGB Conc 34.1 % (30-36); Mean Corpuscular Hemoglobin 32.1 PG (26-34); Monocytes Absolute Auto 800 /uL (0-900); Monocytes Percent Auto 12.4 % (3-14); Neutrophils Absolute Auto 4500 /uL (1500-7000); Neutrophils Percent Auto 71.7 % (50-75); Platelet Count 203 X10^3/uL (150-400); Red Blood Cell Count 4.45 X10^6/uL (4.5-5.9); Red Cell Distribution Width 12.8 % (11.6-14.8); White Blood Cell Count 6.3 X10^3/uL (4.5-11.0)
[2019-03-17 15:09] LABS: Appearance Urine UA CLEAR; Bilirubin Urine UA NEGATIVE (NEGATIVE); Color Urine UA YELLOW; Glucose Urine UA NEGATIVE (Negative); Ketones Urine UA NEGATIVE (NEGATIVE); Leukocyte Esterase Urine UA NEGATIVE (NEGATIVE); Nitrite Urine UA NEGATIVE (Negative); Occult Blood Urine UA NEGATIVE (Negative); Protein Urine UA TRACE (Negative); Specific Gravity Urine UA 1.025 (1.000-1.035); Urobilinogen Urine UA 0.2 E.U./dL (0.2)
[2019-03-17 15:25] LABS: Culture Indicated Urine Cult Not Indicated; Hyaline Casts Urine 0-1/LPF; Mucus Urine 1+ (Negative)
[2019-03-17 15:28] LABS: Erythrocyte Sedimentation Rate 14 MM/HR (0-15)
[2019-03-17 15:37] LABS: Alanine Aminotransferase 21 IU/L (<50); Albumin Globulin Ratio 1.9 (1.0-2.8); Alkaline Phosphatase 66 U/L (38-126); Aspartate Aminotransferase 28 IU/L (17-59); BUN Creatinine Ratio 29.2 (6-22); Bilirubin Total 0.5 mg/dL (0.2-1.3); Blood Urea Nitrogen 35 mg/dL (9-20); C-Reactive Protein Quant < 0.5 mg/dL (<1.0); Calcium 9.5 mg/dL (8.4-10.2); Carbon Dioxide 28 mmol/L (22-32); Chloride 106 mmol/L (98-107); Estimated Glomerular Filt Rate > 60.0 mL/min (>60); Globulin 2.1 g/dL (1.7-4.1); Glucose 81 mg/dL (80-110); HEMOLYSIS < 15 (0-50); Potassium 4.2 mmol/L (3.4-5.1); Sodium 142 mmol/L (137-145); Total Protein 6.1 g/dL (6.3-8.2)
== END ==
PROVIDERS: PCP Student in an Organized Health Care Education/Training Program; Visit Provider Internal Medicine Rheumatology
DX: M31.30 Wegener's granulomatosis without renal involvement (principal); Z79.899 Other long term (current) drug therapy
CPT/HCPCS: 36415; 80053; 81001; 85025; 85651; 86140

== ENCOUNTER → 2019-05-27 12:03 | Outpatient (CLI) | payer OTHER, SELFPAY ==
[2018-03-03 11:27] VITALS: BMI 27.8
--- NOTE | 2019-05-27 12:13 | DI.CT.S_ITS ---
PROCEDURE: CT CHEST WO CON INDICATIONS: SOLITARY PULMONARY NODULE TECHNIQUE: Noncontrast 5 mm thick sections acquired from the pulmonary apices to the posterior costophrenic angles. 1 mm lung window, 5 mm thick coronal and sagittal and 7 mm axial MIP reformats were then acquired. For radiation dose reduction, the following was used: automated exposure control, adjustment of mA and/or kV according to patient size. COMPARISON: [facility], CT, CT CHEST WO CON, 07/16/2018, 11:21. FINDINGS: Image quality: Excellent. Lungs and pleura: No acute air space opacities. The area of previously identified scarring with focal radiodensity at the posterior right upper lobe is again seen and shows no interval enlargement would indicate underlying superimposed chronic infection or neoplasm at this site. Additional thin bands of linear scarring is seen at each lung base, left slightly greater than right. No pleural effusions or pneumothorax. Central and peripheral airways are patent and normal in caliber. Mediastinum: Heart size is normal. No pericardial effusion. No mediastinal adenopathy by size criteria. Thoracic aorta and central pulmonary arteries are normal in size. Esophagus is normal in caliber. No hiatal hernia. Bones and chest wall: No suspicious bony lesions. No vertebral body compression fractures. No axillary or supraclavicular adenopathy by size criteria. Thyroid gland appears normal where well seen. Abdomen: Visualized upper abdominal solid organs and bowel loops appear normal in the absence of contrast. IMPRESSION: Mild lung scarring, posterior right upper lobe and each lower lobe, with no pulmonary nodule present that would indicate early manifestation of underlying neoplasm. No adenopathy is seen. Dictated by: Ray Limon M.D. on 05/27/2019 at 12:26 Approved by: Ray Limon M.D. on 05/27/2019 at 12:30
== END ==
PROVIDERS: PCP Student in an Organized Health Care Education/Training Program; Referring Provider Student in an Organized Health Care Education/Training Program; Visit Provider Student in an Organized Health Care Education/Training Program
DX: R91.1 Solitary pulmonary nodule (principal); J98.4 Other disorders of lung
CPT/HCPCS: 71250

== ENCOUNTER → 2019-06-02 14:20 | Outpatient (CLI) | payer OTHER, SELFPAY ==
[2018-03-03 11:27] VITALS: BMI 27.8
--- NOTE | 2019-06-02 | DI.US.S_ITS ---
PROCEDURE: US ABDOMEN LIMITED INDICATIONS: RIGHT INGUINAL LUMP X 3 WEEKS TECHNIQUE: Real-time focused scanning was performed of the inguinal region, with image documentation. COMPARISON: None. FINDINGS: There is a 2.4 cm herniation at the right groin comprised of a 4.2 x 4.7 x 4.2 cm loop of bowel protruding into the inguinal canal with Valsalva. IMPRESSION: Right groin region inguinal hernia appears present, measuring up to almost 5 cm in maximal dimension during Valsalva maneuver. CT scanning would be recommended for surgical planning if surgical intervention is anticipated. Dictated by: Ray Limon M.D. on 06/02/2019 at 17:00 Approved by: Ray Limon M.D. on 06/02/2019 at 17:03
== END ==
PROVIDERS: PCP Student in an Organized Health Care Education/Training Program; Referring Provider Student in an Organized Health Care Education/Training Program; Visit Provider Student in an Organized Health Care Education/Training Program
DX: K40.90 Unilateral inguinal hernia, without obstruction or gangrene, not specified as recurrent (principal)
CPT/HCPCS: 76705

== ENCOUNTER → 2019-08-17 14:33 | Outpatient (CLI) | payer OTHER, SELFPAY ==
[2019-06-04 13:34] VITALS: BMI 27.8
[2019-08-17 14:44] LABS: RBC Urine None Seen (0-5/HPF); WBC Urine None Seen (0-5/HPF)
[2019-08-17 16:21] LABS: Add Manual Diff / Slide Review NO; Basophils Absolute Auto 100 /uL (0-100); Basophils Percent Auto 0.9 % (0-2); Eosinophils Absolute Auto 100 /uL (0-450); Eosinophils Percent Auto 2.5 % (2-4); Hematocrit 38.4 % (41-53); Hemoglobin 12.8 g/dL (13.5-17.5); Lymphocytes Absolute Auto 700 /uL (1100-4500); Lymphocytes Percent Auto 11.2 % (25-40); Mean Corpuscular HGB Conc 33.3 % (30-36); Mean Corpuscular Hemoglobin 31.1 PG (26-34); Mean Corpuscular Volume 93.5 fL (80-100); Monocytes Absolute Auto 600 /uL (0-900); Monocytes Percent Auto 10.8 % (3-14); Neutrophils Absolute Auto 4400 /uL (1500-7000); Neutrophils Percent Auto 74.6 % (50-75); Platelet Count 179 X10^3/uL (150-400); Red Blood Cell Count 4.11 X10^6/uL (4.5-5.9); Red Cell Distribution Width 13.8 % (11.6-14.8); White Blood Cell Count 5.8 X10^3/uL (4.5-11.0)
[2019-08-17 16:33] LABS: Appearance Urine UA CLEAR; Bilirubin Urine UA NEGATIVE (NEGATIVE); Color Urine UA YELLOW; Glucose Urine UA NEGATIVE (Negative); Ketones Urine UA TRACE (NEGATIVE); Leukocyte Esterase Urine UA NEGATIVE (NEGATIVE); Nitrite Urine UA NEGATIVE (Negative); Occult Blood Urine UA NEGATIVE (Negative); Protein Urine UA TRACE (Negative); Specific Gravity Urine UA 1.025 (1.000-1.035); Urobilinogen Urine UA 0.2 E.U./dL (0.2)
[2019-08-17 16:38] LABS: Erythrocyte Sedimentation Rate 10 MM/HR (0-15)
[2019-08-17 16:41] LABS: Bacteria Urine Few (2-10)
[2019-08-17 16:42] LABS: Culture Indicated Urine Cult Not Indicated; Hyaline Casts Urine 10-30/LPF; Mucus Urine 2+ (Negative)
[2019-08-17 16:50] LABS: Alanine Aminotransferase 17 IU/L (<50); Albumin Globulin Ratio 1.5 (1.0-2.8); Alkaline Phosphatase 85 U/L (38-126); Aspartate Aminotransferase 26 IU/L (17-59); BUN Creatinine Ratio 31.1 (6-22); Bilirubin Total 0.5 mg/dL (0.2-1.3); Blood Urea Nitrogen 32 mg/dL (9-20); Calcium 9.3 mg/dL (8.4-10.2); Carbon Dioxide 26 mmol/L (22-32); Chloride 106 mmol/L (98-107); Estimated Glomerular Filt Rate > 60.0 mL/min (>60); Globulin 2.6 g/dL (1.7-4.1); Glucose 104 mg/dL (80-110); HEMOLYSIS < 15 (0-50); Potassium 4.5 mmol/L (3.4-5.1); Sodium 139 mmol/L (137-145); Total Protein 6.6 g/dL (6.3-8.2)
[2019-08-17 16:51] LABS: C-Reactive Protein Quant < 0.5 mg/dL (<1.0)
== END ==
PROVIDERS: PCP Student in an Organized Health Care Education/Training Program; Referring Provider Internal Medicine Rheumatology; Visit Provider Internal Medicine Rheumatology
DX: M31.30 Wegener's granulomatosis without renal involvement (principal); M25.50 Pain in unspecified joint; Z79.899 Other long term (current) drug therapy
CPT/HCPCS: 36415; 80053; 81001; 85025; 85651; 86140

== ENCOUNTER → 2019-09-01 14:04 | Outpatient (CLI) | payer OTHER, SELFPAY ==
[2019-06-04 13:34] VITALS: BMI 27.8
[2019-09-01 14:26] LABS: Bacteria Urine None Seen; WBC Urine None Seen (0-5/HPF)
[2019-09-01 14:42] LABS: Appearance Urine UA CLEAR; Bilirubin Urine UA NEGATIVE (NEGATIVE); Color Urine UA YELLOW; Glucose Urine UA NEGATIVE (Negative); Ketones Urine UA NEGATIVE (NEGATIVE); Leukocyte Esterase Urine UA NEGATIVE (NEGATIVE); Nitrite Urine UA NEGATIVE (Negative); Occult Blood Urine UA NEGATIVE (Negative); Protein Urine UA TRACE (Negative); Specific Gravity Urine UA 1.025 (1.000-1.035); Urobilinogen Urine UA 0.2 E.U./dL (0.2); pH Urine UA 5.5 (4.5-8.0)
[2019-09-01 15:02] LABS: Culture Indicated Urine Cult Not Indicated; Hyaline Casts Urine 1-5/LPF; Mucus Urine 1+ (Negative); RBC Urine 0-1/HPF (0-5/HPF); Squamous Epithelial Cell Urine 0-1 /HPF (0-5/HPF)
== END ==
PROVIDERS: PCP Student in an Organized Health Care Education/Training Program; Referring Provider Internal Medicine Rheumatology; Visit Provider Internal Medicine Rheumatology
DX: M31.30 Wegener's granulomatosis without renal involvement (principal); M25.50 Pain in unspecified joint; Z79.899 Other long term (current) drug therapy
CPT/HCPCS: 36415; 81001

== ENCOUNTER → 2019-10-03 13:55 | Outpatient (CLI) | payer OTHER, SELFPAY ==
[2019-06-04 13:34] VITALS: BMI 27.8
[2019-10-04 10:14] LABS: COVID19 Sendout Not Detected (Not Detect)
== END ==
PROVIDERS: PCP Student in an Organized Health Care Education/Training Program; Visit Provider Physician Assistant
DX: Z01.812 Encounter for preprocedural laboratory examination (principal)
CPT/HCPCS: 87635

== ENCOUNTER 2019-10-06 07:30 | Day surgery (SDC) | payer OTHER, SELFPAY ==
[2019-06-04 13:34] VITALS: BMI 27.8
[2019-10-01 09:17] VITALS: BMI 28.0
[2019-10-06] VITALS (8 sets, daily range): BP systolic 110–138; BP diastolic 66–82; PULSE 54–82; RESP 10–16; TEMP 36–36.7; O2SAT 83–100; BMI 27.1
[2019-10-06] MEDS: LACTATED RINGERS 1,000 ML 100 ML IV (07:55)
--- NOTE | 2019-10-06 09:01 | PM.HP.1 ---
History of Present Illness History of Present Illness Date Patient Seen: 10/06/19 Time Patient Seen: 09:01 Chief complaint: [id number] Narrative: 64M here for an elective R inguinal hernia repair. There have been no interval changes in his health. Please see the H&P from june 2019 for further detail. Patient History Medical History Abnormal LFTs (liver function tests) (Chronic) Acute respiratory failure (Resolved 2009) Chronic depression (Acute) Chronic renal insufficiency (Acute) Colon polyps (Resolved 2011) Depression (Chronic) Diverticular disease (Chronic 2011) Diverticulosis (Acute) Easy bruisability (Acute) Enlarged prostate (Acute) Hearing loss, right (Acute) HLD (hyperlipidemia) (Acute) Hypertension (Chronic) Kidney disease (Chronic 2009) Kidney failure (Chronic) Pain (Acute) Seasonal allergies (Acute) Spinal stenosis (Acute) Spinal stenosis at L4-L5 level (Chronic 2015) Roxanna's granulomatosis (Chronic 2009) Surgical History Anesthesia (Resolved) History of sinus surgery (Resolved) Status post appendectomy (Resolved 2009) Family & Social History Family History Father Age: 89 Alzheimer's disease Social History: household members spouse Tobacco & Substance use: Smoking Status Never smoker alcohol intake current alcohol intake frequency 3 or more drinks per day Substance Use Type marijuana Meds Home Medications and Allergies Home Medications Medication Instructions Recorded Confirmed Type amlodipine [Norvasc] 5 mg PO DAILY 03/03/18 10/06/19 History atenolol 50 mg PO DAILY 03/03/18 10/06/19 History citalopram [Celexa] 40 mg PO DAILY 03/03/18 10/06/19 History ondansetron 8 mg TRANSLINGUAL DAILY 03/03/18 10/06/19 History prednisone 5 mg PO DAILY 03/03/18 10/06/19 History trazodone 100 mg PO BEDTIME PRN 03/03/18 10/06/19 History benzonatate 100 mg PO TID PRN #10 cap 03/06/18 10/06/19 Rx rituximab [Rituxan] 100 mg IV Q6M 10/01/19 10/06/19 History cetirizine [Zyrtec] 10 mg PO DAILY PRN 10/06/19 10/06/19 History Allergies Allergy/AdvReac Type Severity Reaction Status Date / Time latex Allergy Removes Verified 10/06/19 07:56 skin adhesive AdvReac Blister Verified 10/06/19 07:56 Review of Systems Review of Systems Narrative: A 10 point review of systems is negative except as noted in the HPI Exam Vital Signs (past 8 hours): - 10/06/19 08:20 Temperature 97.6 F Pulse Rate 54 L Respiratory Rate 16 Blood Pressure 110/66 Pulse Oximetry 95 Oxygen Delivery Method Room Air Narrative Exam Narrative: General-no acute distress, well nourished HEENT-moist mucous membranes, no scleral icterus Neck-supple, no lymphadenopathy Chest- non labored respirations, clear to auscultation bilaterally Cardiac-regular rate no peripheral edema Abdomen-soft, nontender, non distended Extremities-warm, well perfused Neurological-alert and oriented, no focal deficits Assessment & Plan Assessment and plan (1) Right inguinal hernia: Status: Acute Assessment & Plan narrative: Christophe is a 64-year-old male with symptomatic reducible right inguinal hernia. He is here for an elective open right inguinal hernia repair. We discussed the risks of the operation including bleeding infection recurrence chronic pain infertility testicular ischemia. His questions have been answered he is in agreement with this plan will schedule at his earliest convenience
[2019-10-06] MEDS: CEFAZOLIN 2 GM/100 ML FROZ.PIGGY IV (09:55)
--- NOTE | 2019-10-06 10:06 | SUR.OPER ---
Supine on padded OR bed, head on pillow, arms secured on padded arm boards at <90 degrees abduction, legs uncrossed, safety belt at thigh, tape over blanket over lower legs.
[2019-10-06] MEDS: BUPIVACAINE 0.25% (PF) VIAL 30 ML INJ (10:11)
--- NOTE | 2019-10-06 11:17 | PM.OP.1 ---
Operative Date/Time/Diagnoses Date of procedure: 10/06/19 Time of procedure: 11:17 Pre-op diagnosis: Right inguinal hernia Post-op diagnosis: same Procedure & Clinicians Procedure: Open right inguinal hernia repair Same procedure as scheduled: Yes Indications: 64-year-old male with a symptomatic right inguinal hernia presents for elective repair Surgeon: Ramses Juan Anesthesia Type: General Operative Notes Findings: A direct and indirect defect Estimated Blood Loss (mL): 20 Procedure in detail: The patient was placed supine on the table and bilateral lower extremity compression devices were applied. Anesthesia was induced they were intubated with an LMA and received 2g of Ancef. A time-out was performed. They were prepped and draped in sterile fashion. The right external inguinal ring and the anterior superior iliac crest were identified and marked. 1 finger breath above the right inguinal ligament the skin was infiltrated with 0.25% bupivacaine. The skin incision was made here and the subcutaneous tissues were divided with electrocautery exposing the external oblique aponeurosis which was then opened along the direction of its fibers. The ilioinguinal nerve was identified on the anterior aspect of the cord and protected. Using a kittner cord was carefully dissected away from the inguinal canal adjacent to the pubic tubercle. The cord was freed and encircled with a [place] drain. A large direct floor defect was identified. The cremasteric fibers surrounding the cord were divided using electrocautery. The vas deferens and the testicular vessels were preserved and protected. There was an indirect hernia on the anterior medial aspect of the cord which was skeletonized away from the vas deferens and testicular blood supply. The indirect hernia was skeletonized back to the internal ring and reduced easily back through the internal ring. I selected a 7x 15 cm lightweight Pro Loop hernia mesh. A plug was placed into the large floor defect and ancored to the inguinal ligamnet. The inferior medial aspect of the mesh sheet was anchored to the periosteum of the pubic tubercle such that there was approximately 2 cm of tubercle overlap with 0 Prolene and then was run continuously along the inferior edge of the mesh to the shelving edge of the inguinal ligament. Interrupted 0 Prolene suture was used to anchor the superior aspect of the mesh to the conjoined tendon in several places. The tails were then reapproximated around the spermatic cord loosely. The tails of the mesh were then tucked under the external oblique aponeurosis. The repair was checked for hemostasis. The wound was irrigated with sterile saline. The external oblique aponeurosis was reapproximated in a running fashion using 3 0 Vicryl. The subcutaneous tissues were reapproximated with 3 0 Vicryl skin closed with 4 0 Monocryl followed by the application of Dermabond. At the end of the operation ensure that both testicles were within the scrotum. The sponge instrument count at the end operation was correct. The patient emerged from anesthesia was extubated and transferred to the postoperative care unit in stable condition. Complications: none Post-operative Disposition: same day surgery
[2019-10-06] MEDS: OXYCODONE/ACETAMINOPHEN 5/325 TABLET 1 TAB PO (11:50)
--- NOTE | 2019-10-06 12:20 | SUR.PHASEII ---
Assumed care from OSIEL Aponte, called, d/c instructions given. Pt wanting to wait here 15-20 min, informed. d/c instructions given to pt, he voiced an understanding.
== END 2019-10-06 12:53 | disposition home or self-care (01) ==
PROVIDERS: PCP Student in an Organized Health Care Education/Training Program; Referring Provider Surgery; Visit Provider Surgery
PROC: (CPT 49505; principal; 2019-10-06 08:45)
DX: K40.90 Unilateral inguinal hernia, without obstruction or gangrene, not specified as recurrent (principal); I10 Essential (primary) hypertension
CPT/HCPCS: 49505; C1781; J0690; J2704; J3010

== ENCOUNTER → 2020-02-01 12:19 | Outpatient (CLI) | payer OTHER, SELFPAY ==
[2019-06-04 13:34] VITALS: BMI 27.8
[2020-02-01 12:30] LABS: Bacteria Urine None Seen; RBC Urine None Seen (0-5/HPF)
[2020-02-01 13:12] LABS: Add Manual Diff / Slide Review NO; Basophils Absolute Auto 100 /uL (0-100); Basophils Percent Auto 0.8 % (0-2); Eosinophils Absolute Auto 100 /uL (0-450); Eosinophils Percent Auto 0.9 % (2-4); Hematocrit 41.2 % (41-53); Hemoglobin 13.5 g/dL (13.5-17.5); Lymphocytes Absolute Auto 800 /uL (1100-4500); Lymphocytes Percent Auto 9.5 % (25-40); Mean Corpuscular HGB Conc 32.8 % (30-36); Mean Corpuscular Hemoglobin 31.2 PG (26-34); Monocytes Absolute Auto 1000 /uL (0-900); Neutrophils Absolute Auto 6100 /uL (1500-7000); Neutrophils Percent Auto 76.8 % (50-75); Platelet Count 187 X10^3/uL (150-400); Red Blood Cell Count 4.34 X10^6/uL (4.5-5.9); Red Cell Distribution Width 14.2 % (11.6-14.8); White Blood Cell Count 7.9 X10^3/uL (4.5-11.0)
[2020-02-01 13:16] LABS: Appearance Urine UA CLEAR; Bilirubin Urine UA NEGATIVE (NEGATIVE); Color Urine UA YELLOW; Glucose Urine UA NEGATIVE (Negative); Ketones Urine UA TRACE (NEGATIVE); Leukocyte Esterase Urine UA NEGATIVE (NEGATIVE); Nitrite Urine UA NEGATIVE (Negative); Occult Blood Urine UA NEGATIVE (Negative); Protein Urine UA 1+ (Negative); Specific Gravity Urine UA >=1.030 (1.000-1.035); Urobilinogen Urine UA 0.2 E.U./dL (0.2)
[2020-02-01 13:38] LABS: Alanine Aminotransferase 20 IU/L (<50); Albumin 4.3 g/dL (3.5-5.0); Albumin Globulin Ratio 1.7 (1.0-2.8); Alkaline Phosphatase 73 U/L (38-126); Aspartate Aminotransferase 27 IU/L (17-59); BUN Creatinine Ratio 20.4 (6-22); Bilirubin Total 0.5 mg/dL (0.2-1.3); Blood Urea Nitrogen 23 mg/dL (9-20); C-Reactive Protein Quant 0.5 mg/dL (<1.0); Calcium 9.6 mg/dL (8.4-10.2); Carbon Dioxide 32 mmol/L (22-32); Chloride 106 mmol/L (98-107); Erythrocyte Sedimentation Rate 10 MM/HR (0-15); Estimated Glomerular Filt Rate > 60.0 mL/min (>60); Globulin 2.5 g/dL (1.7-4.1); Glucose 81 mg/dL (80-110); HEMOLYSIS < 15 (0-50); Potassium 5.2 mmol/L (3.4-5.1); Sodium 140 mmol/L (137-145); Total Protein 6.8 g/dL (6.3-8.2)
[2020-02-01 13:43] LABS: Culture Indicated Urine Cult Not Indicated; Mucus Urine 1+ (Negative); Squamous Epithelial Cell Urine 0-1 /HPF (0-5/HPF); WBC Urine 0-1/HPF (0-5/HPF)
== END ==
PROVIDERS: PCP Student in an Organized Health Care Education/Training Program; Referring Provider Internal Medicine Rheumatology; Visit Provider Internal Medicine Rheumatology
DX: M31.30 Wegener's granulomatosis without renal involvement (principal); Z79.899 Other long term (current) drug therapy
CPT/HCPCS: 36415; 80053; 81001; 85025; 85651; 86140

== ENCOUNTER → 2020-02-20 11:51 | Outpatient (CLI) | payer OTHER, SELFPAY ==
[2019-06-04 13:34] VITALS: BMI 27.8
[2020-02-20 12:37] LABS: Appearance Urine UA SL CLOUDY; Bilirubin Urine UA 1+ (NEGATIVE); Glucose Urine UA NEGATIVE (Negative); Ketones Urine UA TRACE (NEGATIVE); Leukocyte Esterase Urine UA TRACE (NEGATIVE); Nitrite Urine UA NEGATIVE (Negative); Occult Blood Urine UA NEGATIVE (Negative); Protein Urine UA 2+ (Negative); RBC Urine None Seen (0-5/HPF); Specific Gravity Urine UA >=1.030 (1.000-1.035); Urobilinogen Urine UA 0.2 E.U./dL (0.2)
[2020-02-20 13:43] LABS: Protein (Total) Urine Random 73 mg/dL (0-12)
[2020-02-20 14:02] LABS: Creatinine Urine Random 456.9 mg/dL; Protein Creatinine Ratio Urine 0.15 GRAM/24H
[2020-02-20 14:07] LABS: Bacteria Urine Moderate (10-30); Color Urine UA Amber; Ictotest Urine Negative (Negative); Squamous Epithelial Cell Urine 0-1 /HPF (0-5/HPF); WBC Urine 0-1/HPF (0-5/HPF)
[2020-02-20 14:08] LABS: Culture Indicated Urine Specimen Cultured; Hyaline Casts Urine 5-10/LPF
== END ==
PROVIDERS: PCP Student in an Organized Health Care Education/Training Program; Referring Provider Internal Medicine Rheumatology; Visit Provider Internal Medicine Rheumatology
DX: M31.30 Wegener's granulomatosis without renal involvement (principal); Z79.899 Other long term (current) drug therapy
CPT/HCPCS: 81001; 82570; 84156; 87086

== ENCOUNTER → 2020-05-28 09:40 | Outpatient (CLI) | payer OTHER, SELFPAY ==
[2019-06-04 13:34] VITALS: BMI 27.8
[2020-05-28 09:45] LABS: Bacteria Urine None Seen; RBC Urine None Seen (0-5/HPF); WBC Urine None Seen (0-5/HPF)
[2020-05-28 10:38] LABS: Appearance Urine UA CLEAR; Bilirubin Urine UA NEGATIVE (NEGATIVE); Color Urine UA YELLOW; Glucose Urine UA NEGATIVE (Negative); Ketones Urine UA NEGATIVE (NEGATIVE); Leukocyte Esterase Urine UA NEGATIVE (NEGATIVE); Nitrite Urine UA NEGATIVE (Negative); Occult Blood Urine UA NEGATIVE (Negative); Protein Urine UA TRACE (Negative); Specific Gravity Urine UA 1.015 (1.000-1.035); Urobilinogen Urine UA 0.2 E.U./dL (0.2); pH Urine UA 5.5 (4.5-8.0)
[2020-05-28 10:41] LABS: Add Manual Diff / Slide Review NO; Basophils Absolute Auto 100 /uL (0-100); Basophils Percent Auto 1.2 % (0-2); Eosinophils Absolute Auto 200 /uL (0-450); Eosinophils Percent Auto 2.7 % (2-4); Hematocrit 42.4 % (41-53); Lymphocytes Absolute Auto 1000 /uL (1100-4500); Lymphocytes Percent Auto 16.2 % (25-40); Mean Corpuscular Hemoglobin 30.5 PG (26-34); Mean Corpuscular Volume 92.5 fL (80-100); Monocytes Absolute Auto 900 /uL (0-900); Monocytes Percent Auto 14.8 % (3-14); Neutrophils Absolute Auto 4100 /uL (1500-7000); Neutrophils Percent Auto 65.1 % (50-75); Platelet Count 200 X10^3/uL (150-400); Red Blood Cell Count 4.58 X10^6/uL (4.5-5.9); Red Cell Distribution Width 13.3 % (11.6-14.8); White Blood Cell Count 6.4 X10^3/uL (4.5-11.0)
[2020-05-28 11:04] LABS: Culture Indicated Urine Cult Not Indicated; Urine Comments Microscopic Normal
[2020-05-28 11:08] LABS: Creatinine Urine Random 122.6 mg/dL; Protein (Total) Urine Random 31 mg/dL (0-12); Protein Creatinine Ratio Urine 0.25 GRAM/24H
[2020-05-28 11:09] LABS: Alanine Aminotransferase 16 IU/L (<50); Albumin Globulin Ratio 1.7 (1.0-2.8); Alkaline Phosphatase 75 U/L (38-126); Aspartate Aminotransferase 23 IU/L (17-59); BUN Creatinine Ratio 26.1 (6-22); Bilirubin Total 0.5 mg/dL (0.2-1.3); Blood Urea Nitrogen 24 mg/dL (9-20); C-Reactive Protein Quant 0.7 mg/dL (<1.0); Calcium 9.3 mg/dL (8.4-10.2); Carbon Dioxide 29 mmol/L (22-32); Chloride 105 mmol/L (98-107); Estimated Glomerular Filt Rate > 60.0 mL/min (>60); Globulin 2.4 g/dL (1.7-4.1); Glucose 100 mg/dL (80-110); HEMOLYSIS < 15 (0-50); Potassium 4.7 mmol/L (3.4-5.1); Sodium 138 mmol/L (137-145); Total Protein 6.4 g/dL (6.3-8.2)
[2020-05-28 11:15] LABS: Erythrocyte Sedimentation Rate 7 MM/HR (0-15)
== END ==
PROVIDERS: Internal Medicine Rheumatology; PCP Student in an Organized Health Care Education/Training Program; Referring Provider Student in an Organized Health Care Education/Training Program; Visit Provider Student in an Organized Health Care Education/Training Program
DX: M31.30 Wegener's granulomatosis without renal involvement (principal); Z79.899 Other long term (current) drug therapy
CPT/HCPCS: 36415; 80053; 81001; 82570; 84156; 85025; 85651; 86140

== ENCOUNTER → 2020-08-05 14:03 | Outpatient (CLI) | payer OTHER, SELFPAY ==
[2019-06-04 13:34] VITALS: BMI 27.8
== END ==
PROVIDERS: PCP Student in an Organized Health Care Education/Training Program; Referring Provider Internal Medicine Rheumatology; Visit Provider Internal Medicine Rheumatology
DX: M85.80 Other specified disorders of bone density and structure, unspecified site (principal); Z79.52 Long term (current) use of systemic steroids
CPT/HCPCS: 77080

== ENCOUNTER → 2021-02-20 13:26 | Outpatient (CLI) | payer OTHER, SELFPAY ==
[2019-06-04 13:34] VITALS: BMI 27.8
[2021-02-20 14:18] LABS: Cholesterol 260 mg/dL (140-199); HDL Cholesterol 75 mg/dL (40-60); LDL Cholesterol Calculated 156 mg/dL (<100); Triglycerides 147 mg/dL (35-150)
[2021-02-20 17:46] LABS: Hep C Virus Ab w/Reflex Quant NEGATIVE s/c (NEGATIVE)
== END ==
PROVIDERS: PCP Student in an Organized Health Care Education/Training Program; Referring Provider Student in an Organized Health Care Education/Training Program; Visit Provider Student in an Organized Health Care Education/Training Program
DX: E78.5 Hyperlipidemia, unspecified (principal)
CPT/HCPCS: 36415; 80061; 86803

== ENCOUNTER → 2022-12-20 13:35 | Outpatient (CLI) | payer OTHER, SELFPAY ==
[2019-06-04 13:34] VITALS: BMI 27.8
--- NOTE | 2022-12-20 | DI.ECHO.S_ITS ---
[facility]---------+ [facility] +---------+ : : [address] : [place] : : : : [id number] : : : : Phone: [phone]+ Echocardiogram Report + + :Name: KESHAV MASSEY Study Date: 12/20/2022 Height: 72 in : :[facility] ReadingLocation: Weight: 200 lb : : Gender: Male BSA: 2.1 m2 : :: 1955 Age: 67 yrs BP: 109/81 mmHg: :Reason For Study: Unspecified Atrial Fibrillation : :Ordering Physician: BELL, : :DENI Performed By: Bethany Gardner : :Referring: DENI LUU : + + Interpretation Summary The left ventricle is normal in size. Left ventricular systolic function is mildly reduced. The ejection fraction is estimated to be 40-45%. Diastolic function could not be accurately assessed due to atrial flutter The right ventricle is normal in size and function. The left atrial size is normal. There is no significant valvular heart disease. The aortic root is normal size. Procedure: A two-dimensional transthoracic echocardiogram with color flow and Doppler was performed. The study quality was technically adequate. Comparison is made with the echocardiogram of 04/29/2015. The patient was in atrial flutter with heart rates between 85-110 bpm during the exam. Left Ventricle: The left ventricle is normal in size. Left ventricular systolic function is mildly reduced. The ejection fraction is estimated to be 40-45%. There is mild global hypokinesis of the left ventricle. Diastolic function could not be accurately assessed due to atrial flutter. Right Ventricle: The right ventricle is normal in size and function. Atria: The left atrial size is normal. Right atrial size is normal. There is no Doppler evidence for an interatrial shunt. Mitral Valve: The mitral valve is normal. There is no mitral valve stenosis. There is trace mitral regurgitation. Aortic Valve: The aortic valve is trileaflet. The aortic valve opens well. There is mild aortic valve sclerosis. There is no aortic valve stenosis. No aortic regurgitation is present. Tricuspid Valve: The tricuspid valve is normal. There is no tricuspid stenosis. There is mild tricuspid regurgitation. Pulmonic Valve: The pulmonic valve leaflets are thin and pliable; valve motion is normal. There is no pulmonic valvular stenosis. There is trace pulmonic regurgitation. There is no significant valvular heart disease. Great Vessels: The aortic root is normal size. The ascending aorta is normal in size. The pulmonary artery is normal size. The IVC is of normal diameter and collapses greater than 50% with a sniff. This suggests a low right atrial pressure of 3 mm Hg. Pericardium/ Pleura There is no pericardial effusion. There is no pleural effusion. MMode/2D Measurements & Calculations LVIDd: 4.9 cm LVOT diam: 2.2 cm LVIDs: 3.4 cm Ao root diam: 3.6 cm FS: 30.6 % asc Aorta Diam: 3.5 cm IVSd: 1.1 cm LVPWd: 1.0 cm LV trujillo. diameter/BSA (cm/m^2): 2.3 LV sys. diameter/BSA (cm/m^2): 1.6 LA A2 area: 21.6 cm2 RA long axis: 5.4 cm LA A4 area: 20.9 cm2 RA area: 17.7 cm2 LA length (vol): 6.1 cm RA vol: 50.0 ml LA vol: 62.7 ml RA : 23.5 ml/m2 LA vol index: 29.4 ml/m2 RVD1 (basal): 3.7 cm LVLs ap4: 7.1 cm LVLd ap2: 8.0 cm TAPSE_phl: 1.8 cm LVLs ap2: 7.1 cm Reading Physician:04:41 PM
== END ==
PROVIDERS: PCP Student in an Organized Health Care Education/Training Program; Referring Provider Student in an Organized Health Care Education/Training Program; Visit Provider Student in an Organized Health Care Education/Training Program
DX: I08.2 Rheumatic disorders of both aortic and tricuspid valves (principal); I48.91 Unspecified atrial fibrillation
CPT/HCPCS: 93306

== ENCOUNTER → 2023-06-13 10:10 | Outpatient (CLI) | payer OTHER, SELFPAY ==
[2019-06-04 13:34] VITALS: BMI 27.8
--- NOTE | 2023-06-13 10:11 | DI.US.S_ITS ---
PROCEDURE: US CAROTID DOPPLER BI INDICATIONS: Hyperlipidemia, unspecified TECHNIQUE: Color and pulse Doppler interrogation was performed of both carotid systems, with image documentation and velocity measurements. COMPARISON: None. FINDINGS: Stenosis calculations are based on SRU (Society of Radiologists in Ultrasound) criteria. The flow velocities and the arterial waveforms are normal within both carotid arterial systems. Atherosclerotic plaque is seen on both sides. The estimated degree of internal carotid artery stenosis is less than 50%. Antegrade flow is confirmed within both vertebral arteries. IMPRESSION: No hemodynamically significant stenosis is seen. Atherosclerotic plaque is noted bilaterally. Dictated by: Sanford Padilla M.D. on 06/13/2023 at 10:06 Approved by: Sanford Padilla M.D. on 06/13/2023 at 10:07
== END ==
LOC: US 10:11
PROVIDERS: PCP Student in an Organized Health Care Education/Training Program; Referring Provider Student in an Organized Health Care Education/Training Program; Visit Provider Student in an Organized Health Care Education/Training Program
DX: E78.5 Hyperlipidemia, unspecified (principal); I65.23 Occlusion and stenosis of bilateral carotid arteries
CPT/HCPCS: 93880

== ENCOUNTER → 2023-10-29 12:17 | Outpatient (CLI) | payer OTHER, SELFPAY ==
[2019-06-04 13:34] VITALS: BMI 27.8
--- NOTE | 2023-10-29 12:19 | DI.ECHO.S_ITS ---
[place] +---------+ [facility] : : [address] : : [place] : : [id number] : : Phone: [phone] Echocardiogram Report + + :Name: KESHAV MASSEY Study Date: 10/29/2023 Height: 72 in : :Hospital ReadingLocation: Weight: 200 lb : : Gender: Male BSA: 2.1 m2 : :: 1955 Age: 68 yrs BP: 123/98 mmHg: :Reason For Study: CARDIOMYOPATHY : :Ordering Physician: SANDRA, : :WENDY Performed By: Isma Dye : :Referring: WENDY SOSA : + + Interpretation Summary 1) Normal left ventricular size and thickness with severely reduced systolic function (EF 25-30%). 2) Global hypokinesis that is severe at the apical cap. 3) Grossly, normal right ventricular size with mildly reduced function. 4) No significant valvular abonrmalities. 5) Atrial fibrilation with rapid ventricular response is present on this study (rates 129-164bpm). 6) Compared to the Echo done 12/20/2022, LVEF has decreased from 40-45% to 25- 30% on this study. Procedure: A two-dimensional transthoracic echocardiogram with color flow and Doppler was performed. The study quality was technically adequate. Comparison is made with the echocardiogram of 12/20/2022. The patient was in atrial fibrillation with heart rates between 129-164 bpm during the exam. Left Ventricle: The left ventricle is normal in size and wall thickness. The ejection fraction is estimated to be 25-30%. Global hypokinesis that is severe at the apical cap. Right Ventricle: The right ventricle is grossly normal size. Right ventricular systolic function is mildly reduced. Atria: The left atrium is mildly dilated. The right atrium is borderline dilated. The interatrial septum grossly appears intact with no obvious evidence for an atrial septal defect. Mitral Valve: The mitral valve is normal. There is no mitral valve stenosis. There is no mitral regurgitation noted. Aortic Valve: The aortic valve is trileaflet. There is no aortic valve stenosis. No aortic regurgitation is present. Tricuspid Valve: The tricuspid valve is normal. There is no tricuspid stenosis. There is a trace or physiologic amount of tricuspid regurgitation. Pulmonic Valve: The pulmonic valve is not well visualized. There is no pulmonic valvular stenosis. There is a trace or physiologic amount of pulmonic regurgitation. Great Vessels: The aortic root is borderline dilated. The dimensions of the ascending aorta are normal. The IVC is of normal diameter and collapses greater than 50% with a sniff. This suggests a low right atrial pressure of 3 mm Hg. Pericardium/ Pleura There is no pericardial effusion. There is no pleural effusion. MMode/2D Measurements & Calculations LVIDd: 5.0 cm LVOT diam: 2.4 cm LVIDs: 3.8 cm Ao root diam: 3.7 cm FS: 24.4 % asc Aorta Diam: 3.5 cm IVSd: 1.1 cm Ao Arch Diam (Prox Trans): 2.6 cm LVPWd: 1.0 cm LV trujillo. diameter/BSA (cm/m^2): 2.3 LV sys. diameter/BSA (cm/m^2): 1.8 LA A2 area: 19.4 cm2 RA long axis: 5.7 cm LA A4 area: 27.9 cm2 RA area: 19.8 cm2 LA length (vol): 6.8 cm RA vol: 58.1 ml LA vol: 67.6 ml RA : 27.3 ml/m2 LA vol index: 31.7 ml/m2 IVC diam: 1.8 cm RVD1 (basal): 4.1 cm RVD2 (mid): 3.8 cm Doppler Measurements & Calculations Ao V2 max: 77.2 cm/sec LVOT Max Dick: 57.5 cm/sec Ao V2 mean: 58.0 cm/sec LV V1 max P.3 mmHg Ao max P.4 mmHg LV V1 VTI: 10.0 cm Ao mean P.5 mmHg VARUN(I,D): 4.5 cm2 Ao V2 VTI: 9.9 cm VARUN(V,D): 3.3 cm2 sev ratio: 1.0 VARUN indexed to BSA (cm^2/m^2): 2.1 MV E max dick: 59.9 cm/sec PA V2 max: 63.4 cm/sec MV A max dick: 1.8 cm/sec PA V2 mean: 47.8 cm/sec MV E/A: 33.2 PA mean P.99 mmHg MV dec time: 0.07 sec PA pr(Accel): 47.7 mmHg SV([facility]): 44.4 ml Reading Physician:03:52 PM
== END ==
PROVIDERS: PCP Student in an Organized Health Care Education/Training Program; Referring Provider Internal Medicine Cardiovascular Disease; Visit Provider Internal Medicine Cardiovascular Disease
DX: I48.19 Other persistent atrial fibrillation (principal); I42.9 Cardiomyopathy, unspecified
CPT/HCPCS: 93306

== ENCOUNTER → 2024-05-02 11:45 | Outpatient (CLI) | payer OTHER, SELFPAY ==
[2019-06-04 13:34] VITALS: BMI 27.8
[2024-05-02 12:50] LABS: C-Reactive Protein Quant 0.8 mg/dL (<1.0)
[2024-05-02 13:17] LABS: Erythrocyte Sedimentation Rate 33 MM/HR (0-15)
== END ==
PROVIDERS: PCP Internal Medicine; Referring Provider Internal Medicine Rheumatology; Visit Provider Internal Medicine Rheumatology
DX: M25.432 Effusion, left wrist (principal); M31.30 Wegener's granulomatosis without renal involvement; Z79.899 Other long term (current) drug therapy
CPT/HCPCS: 36415; 85651; 86140

== ENCOUNTER → 2024-06-23 07:37 | Outpatient (CLI) | payer OTHER, SELFPAY ==
[2019-06-04 13:34] VITALS: BMI 27.8
--- NOTE | 2024-06-23 07:39 | DI.ECHO.S_ITS ---
[place] +---------+ [facility] : : [address] : : [place] : : [id number] : : Phone: [phone] Echocardiogram Report + + :Name: KESHAV MASSEY Study Date: 06/23/2024 Height: 72 in : :Hospital ReadingLocation: Weight: 190 lb : : Gender: Male BSA: 2.1 m2 : :: 1955 Age: 69 yrs BP: 147/89 mmHg: :Reason For Study: ATRIAL FIBRILLATION : :Ordering Physician: STEFF, : :JOHN Performed By: Keesha Castillo : :Referring: JOHN ARTIS : + + Interpretation Summary The patient was in sinus bradycardia with heart rates between 50-68 bpm during the exam. The ejection fraction is estimated to be 55-60%. The right ventricle is normal in size and function. Compared to the prior study 10/29/2023, the ejection fraction has increased. Procedure: A two-dimensional transthoracic echocardiogram with color flow and Doppler was performed in limited views only to assess ejection fraction and wall motion.. Images were not obtained from all of the standard acoustic windows due to the limited scope of the study. Comparison is made with the echocardiogram of 10/29/2023. The patient was in sinus bradycardia with heart rates between 50-68 bpm during the exam. Left Ventricle: The left ventricle is normal in size and wall thickness. The ejection fraction is estimated to be 55-60%. Right Ventricle: The right ventricle is normal in size and function. Mitral Valve: The mitral valve is normal. Aortic Valve: The aortic valve is trileaflet. The aortic valve opens well. Tricuspid Valve: The tricuspid valve leaflets are thin and pliable. There is trace tricuspid regurgitation. Great Vessels: The IVC is of normal diameter and collapses greater than 50% with a sniff. This suggests a low right atrial pressure of 3 mm Hg. Pericardium/ Pleura There is no pericardial effusion. There is no pleural effusion. MMode/2D Measurements & Calculations LVIDd: 5.3 cm IVC diam: 2.0 cm LVIDs: 3.6 cm FS: 32.4 % EPSS: 1.4 cm IVSd: 0.91 cm LVPWd: 1.1 cm LV trujillo. diameter/BSA (cm/m^2): 2.5 LV sys. diameter/BSA (cm/m^2): 1.7 Doppler Measurements & Calculations TR max shayy: 263.0 cm/sec TR max P.7 mmHg Reading Physician:05:40 PM
== END ==
PROVIDERS: PCP Nurse Practitioner Family; Referring Provider Nurse Practitioner Family; Visit Provider Nurse Practitioner Family
DX: I48.19 Other persistent atrial fibrillation (principal); I42.0 Dilated cardiomyopathy
CPT/HCPCS: 93307

== ENCOUNTER → 2025-02-22 10:55 | Outpatient (CLI) | payer OTHER, SELFPAY ==
[2019-06-04 13:34] VITALS: BMI 27.8
[2025-02-22 16:13] LABS: TSH w/ Reflex to FT4 2.02 uIU/mL (0.47-4.68)
[2025-02-22 17:04] LABS: Prostate Specific Antigen 1.10 ng/mL (0.10-4.00)
== END ==
PROVIDERS: PCP Internal Medicine; Referring Provider Internal Medicine; Visit Provider Internal Medicine
DX: E05.90 Thyrotoxicosis, unspecified without thyrotoxic crisis or storm (principal); Z12.5 Encounter for screening for malignant neoplasm of prostate
CPT/HCPCS: 36415; 84153; 84443